=== PATIENT | female | born 1995 | race Caucasian/White ===

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

== ENCOUNTER → 2017-06-08 | Outpatient (CLI) | payer OTHER ==
--- NOTE | 2017-06-08 07:26 | DIAGNOSTIC IMAGING REPORT ---
MRI THE LEFT SIDE NO CONTRAST CLINICAL HISTORY: LEFT THIGH PAIN COMPARISON STUDY: No previous studies for comparison. FINDINGS: Imaging was performed in the sagittal, coronal, and axial planes. There is subtle periosteal edema surrounding the proximal and mid left femur. There is subtle associated marrow edema on T2-weighted images. No definite marrow signal changes are visualized on T1-weighted images. No soft tissue masses are visualized in this noncontrast study. IMPRESSION: 1. Grade 2 stress reaction involving the proximal to mid left femur Electronically signed by: Gary Nunn M.D. 06/08/2017 7:25 AM Dictated Date/Time: 06/08/2017 7:19 AM
== END | disposition home or self-care (01) ==
LOC: C.MRI 06:20
PROVIDERS: ATTEND Internal Medicine
DX: M79.652 Pain in left thigh (principal)